=== PATIENT | male | born 1990 | race Caucasian/White ===

== ENCOUNTER 2018-10-27 20:27 | Emergency (ER) | payer OTHER ==
[2018-10-27] MEDS: DIPHTH/TET/ACEL PERTUSS (ADULT) 0.5 ML VIAL IM* (22:06)
== END 2018-10-28 00:23 ==
LOC: E/R 10-28 00:23
DX: S00.33XA Contusion of nose, initial encounter (principal); R40.2412 Glasgow coma scale score 13-15, at arrival to emergency department; T75.4XXA Electrocution, initial encounter; F10.920 Alcohol use, unspecified with intoxication, uncomplicated; V87.7XXA Person injured in collision between other specified motor vehicles (traffic), initial encounter; Z23 Encounter for immunization; Z02.89 Encounter for other administrative examinations
CPT/HCPCS: 70450; 72125; 90471; 99284-25